=== PATIENT | male | born 1990 | race Two or more races ===

== ENCOUNTER 2018-04-13 01:38 | Emergency (ER) | payer OTHER ==
[2018-04-13] MEDS ORDERED: diphenhydrAMINE HCL 25 MG CAPSULE (FP) PO ONE ×2 (02:05→02:21)
--- NOTE | 2018-04-13 02:10 | PDOC ---
History of Present Illness - General Chief Complaint: Scabies Stated Complaint: ALERGIC REACTION Time Seen by Provider: 04/13/18 01:53 History Source: Patient - History of Present Illness Initial Comments: 04/13/18 02:05 27 year old c/o itchiness worse in b/l axilla, trunk and groin since 11 pm. patient reports eating baked ziti which patient made himself. denies SOB, wheezing, chest pain, throat pain, NVD, abdominal Pain. no known allergies 04/13/18 02:09 Past History - Past Medical History Allergies/Adverse Reactions: Allergies Allergy/AdvReac Type Severity Reaction Status Date / Time No Known Allergies Allergy Verified 04/13/18 01:53 Home Medications: Ambulatory Orders Diphenhydramine HCl [Benadryl -] 25 mg PO Q6H PRN #14 capsule 04/13/18 Permethrin 5% Topical Cream [Elimite -] 1 applic TP ONCE #1 tube 04/13/18 - Suicide/Smoking/Psychosocial Hx Smoking History: Never smoked Have you smoked in the past 12 months: No Information on smoking cessation initiated: No Hx Alcohol Use: Yes (social) Drug/Substance Use Hx: No Review of Systems - Review of Systems Able to Perform ROS?: Yes Is the patient limited Slovak proficient: No Integumentary: Yes: Pruritus, Rash *Physical Exam - Vital Signs Last Vital Signs Temp Pulse Resp BP Pulse Ox 97.8 F 75 20 135/89 99 04/13/18 01:50 04/13/18 01:50 04/13/18 01:50 04/13/18 01:50 04/13/18 01:50 - Physical Exam General Appearance: Yes: Appropriately Dressed Integumentary: positive: Other (bites noted to both arms, axilla and groin). negative: Hives Neurologic: positive: Fully Oriented, Alert Moderate Sedation - Procedure Monitoring Vital Signs: Procedure Monitoring Vital Signs Temperature 97.8 F 04/13/18 01:50 Pulse Rate 75 04/13/18 01:50 Respiratory Rate 20 04/13/18 01:50 Blood Pressure 135/89 04/13/18 01:50 O2 Sat by Pulse Oximetry (%) 99 04/13/18 01:50 Medical Decision Making - Medical Decision Making 04/13/18 02:10 A: scabies P: Benadryl. patient will take a cab home *DC/Admit/Observation/Transfer Diagnosis at time of Disposition: Scabies - Discharge Dispostion Disposition: HOME - Prescriptions Prescriptions: Diphenhydramine HCl [Benadryl -] 25 mg PO Q6H PRN #14 capsule PRN Reason: itch Permethrin 5% Topical Cream [Elimite -] 1 applic TP ONCE #1 tube - Referrals - Patient Instructions Printed Discharge Instructions: DI for Scabies Additional Instructions: Getting rid of mites The most commonly used treatment for scabies is a topical (cream) medication such as permethrin 5% cream (Elimite, Acticin). Permethrin is applied to all areas of the skin from the neck to the feet and is washed off in a shower or bath after 8 to 14 hours. Your healthcare provider may instruct you to repeat the treatment after one week. People with crusted scabies are usually treated with permethrin and an anti-parasitic pill ( ivermectin/Stromectol). In order for any treatment to be successful, it must be used correctly. Creams or lotions must be applied carefully to cover all skin from the neck down, and rinsed off according to instructions. Treat family members In some cases, household members and close contacts of a person with symptoms need treatment for scabies, even if there are no symptoms, to avoid a repeating cycle of infection. A healthcare provider can help to decide if this is necessary, depending upon the individual situation. Although scabies is less frequently spread by touching the clothing or bedsheets of an infected person, it is still a good idea to wash or isolate any clothing, bedding, towels, pajamas, underwear, or stuffed animals that the person has touched within three days before treatment. It is not usually necessary to wash other items. Reasonable options for eliminating mites from these items include placing them in plastic bags for at least three days, machine washing and then ironing or drying in an electric dryer on the hot setting, or dry cleaning. Crusted scabies is more likely to be spread through shared clothing or objects than typical scabies. (See 'Crusted scabies' above.) Relieving itching Antihistamines may help to control itching. Nonsedating antihistamines, such as loratadine (Claritin) or cetirizine (Zyrtec), are generally recommended during the day while sedating antihistamines (eg, diphenhydramine/Benadryl) can help to control itching and improve sleep at night. Itching may persist for several weeks after mites are eliminated; a steroid cream or a course of oral glucocorticoids may be recommended if itching is severe. If symptoms persist or become worse, the person may have become re- infected. Treating infection The skin usually heals without difficulty after mites are treated. Keeping the skin clean and dry and avoiding scratching can help to prevent infection. However, if signs of a skin infection develop (eg, redness, swelling, pus, pain), oral antibiotics are generally recommended. - Post Discharge Activity Forms/Work/School Notes: Back to Work
--- NOTE | 2018-04-13 02:11 | PDOC ---
*Physical Exam - Vital Signs Last Vital Signs Temp Pulse Resp BP Pulse Ox 97.8 F 75 20 135/89 99 04/13/18 01:50 04/13/18 01:50 04/13/18 01:50 04/13/18 01:50 04/13/18 01:50 - Physical Exam Comments: 04/13/18 03:31 Lesions and excoriations from scratching in the webspaces, the flexural surfaces of the extremities and in the groin Medical Decision Making - Medical Decision Making 04/13/18 03:30 Agree with assessment and plan as documented by PA *DC/Admit/Observation/Transfer Diagnosis at time of Disposition: Scabies - Discharge Dispostion Disposition: HOME - Prescriptions Prescriptions: Diphenhydramine HCl [Benadryl -] 25 mg PO Q6H PRN #14 capsule PRN Reason: itch Permethrin 5% Topical Cream [Elimite -] 1 applic TP ONCE #1 tube - Referrals - Patient Instructions Printed Discharge Instructions: DI for Scabies Additional Instructions: Getting rid of mites The most commonly used treatment for scabies is a topical (cream) medication such as permethrin 5% cream (Elimite, Acticin). Permethrin is applied to all areas of the skin from the neck to the feet and is washed off in a shower or bath after 8 to 14 hours. Your healthcare provider may instruct you to repeat the treatment after one week. People with crusted scabies are usually treated with permethrin and an anti-parasitic pill ( ivermectin/Stromectol). In order for any treatment to be successful, it must be used correctly. Creams or lotions must be applied carefully to cover all skin from the neck down, and rinsed off according to instructions. Treat family members In some cases, household members and close contacts of a person with symptoms need treatment for scabies, even if there are no symptoms, to avoid a repeating cycle of infection. A healthcare provider can help to decide if this is necessary, depending upon the individual situation. Although scabies is less frequently spread by touching the clothing or bedsheets of an infected person, it is still a good idea to wash or isolate any clothing, bedding, towels, pajamas, underwear, or stuffed animals that the person has touched within three days before treatment. It is not usually necessary to wash other items. Reasonable options for eliminating mites from these items include placing them in plastic bags for at least three days, machine washing and then ironing or drying in an electric dryer on the hot setting, or dry cleaning. Crusted scabies is more likely to be spread through shared clothing or objects than typical scabies. (See 'Crusted scabies' above.) Relieving itching Antihistamines may help to control itching. Nonsedating antihistamines, such as loratadine (Claritin) or cetirizine (Zyrtec), are generally recommended during the day while sedating antihistamines (eg, diphenhydramine/Benadryl) can help to control itching and improve sleep at night. Itching may persist for several weeks after mites are eliminated; a steroid cream or a course of oral glucocorticoids may be recommended if itching is severe. If symptoms persist or become worse, the person may have become re- infected. Treating infection The skin usually heals without difficulty after mites are treated. Keeping the skin clean and dry and avoiding scratching can help to prevent infection. However, if signs of a skin infection develop (eg, redness, swelling, pus, pain), oral antibiotics are generally recommended. - Post Discharge Activity Forms/Work/School Notes: Back to Work
[2018-04-13 02:21] VITALS: BP 135/89; PULSE 75; TEMP 97.8; BMI 34.0
== END 2018-04-13 02:24 | disposition home or self-care (01) ==
LOC: JER 01:38
DX: B86 Scabies (principal)
CPT/HCPCS: 99281-25